=== PATIENT | female | born 1945 | race Caucasian/White ===

== ENCOUNTER → 2019-11-18 13:08 | Outpatient (CLI) | payer MEDICARE, SELFPAY ==
--- NOTE | ~2019-11-18 | MM_ITS ---
EXAMINATION: MM screening dawood BI w apurva HISTORY: Screening mammogram TECHNIQUE: Craniocaudal and mediolateral oblique 3-D tomosynthesis images were obtained and synthetic 2-D images were generated. CAD analysis was submitted and interpreted. COMPARISON: 08/16/2018 bilateral digital screening mammogram 07/09/2018 limited left breast ultrasound 12/05/2018 diagnostic left digital mammogram and limited left breast ultrasound 07/11/2017 and 08/29/2015 bilateral digital screening mammogram examinations BREAST PARENCHYMAL COMPOSITION: There are scattered areas of fibroglandular density. FINDINGS: Scattered bilateral benign breast calcifications. There is no evidence of suspicious mass, calcification, or architectural distortion to suggest malignancy in either breast. There has been no suspicious interval change. IMPRESSION: 1. No mammographic evidence of malignancy. 2. Recommend routine screening mammography in one year. BI-RADS Category 2: Benign finding(s). Reviewed, dictated and finalized at location A.
--- NOTE | ~2019-11-18 | DEXA_ITS ---
Bone Density Report Name: Benny Dominguez Age: 74 Sex: Female Ethnicity: White Date of : 1945 Indication: osteopenia; height loss; hysterectomy; postmenopausal Referring Provider: TAMIKO DALY Study: Bone densitometry was performed. Exam Date: November 18, 2019 Accession number: [id number] Bone Density: Region BMD T-score Z-score Classification AP Spine (L1-L4) 0.962 -0.8 1.5 Normal Femoral Neck (Left) 0.692 -1.4 0.6 Osteopenia Total Hip (Left) 0.758 -1.5 0.2 Osteopenia Femoral Neck (Right) 0.689 -1.4 0.5 Osteopenia Total Hip (Right) 0.758 -1.5 0.2 Osteopenia Total Hip Mean 0.758 -1.5 0.2 Osteopenia World Health Organization criteria for BMD impression classify patients as: Normal (T-score at or above -1.0), Osteopenia (T-score between -1.0 and -2.5), or Osteoporosis (T-score at or below -2.5). 10-year Fracture Risk(1): Major Osteoporotic Fracture 10% Hip Fracture 1.7% Reported Risk Factors: [place] (), Neck BMD=0.689, BMI=30.9 (1) FRAX(R) Version 3.08. Fracture probability calculated for an untreated patient. Fracture probability may be lower if the patient has received treatment. Previous Exams: Region Exam Age BMD T-score BMD Change BMD Change Date g/cm2 vs Baseline vs Previous AP Spine(L1-L4) 11/18/2019 74 0.962 -0.8 0.033* 0.000 08/29/2015 70 0.962 -0.8 0.033* -0.025* 08/09/2013 68 0.987 -0.5 0.058* -0.013 08/09/2011 66 1.000 -0.4 0.072* 0.070* 07/24/2009 64 0.930 -1.1 0.002 0.023 06/17/2008 63 0.908 -1.3 -0.021 -0.021 03/30/2007 61 0.929 -1.1 Total Hip(Left) 11/18/2019 74 0.758 -1.5 -0.019 -0.045* 08/29/2015 70 0.804 -1.1 0.026 0.006 08/09/2013 68 0.798 -1.2 0.020 -0.021 08/09/2011 66 0.819 -1.0 0.041* 0.017 07/24/2009 64 0.801 -1.2 0.023 0.037* 06/17/2008 63 0.765 -1.5 -0.013 -0.013 03/30/2007 61 0.778 -1.3 Total Hip(Right) 11/18/2019 74 0.758 -1.5 0.031* 0.002 08/29/2015 70 0.756 -1.5 0.029* -0.005 08/09/2013 68 0.761 -1.5 0.034* -0.005 08/09/2011 66 0.766 -1.4 0.039* 0.019 07/24/2009 64 0.747 -1.6 0.020 0.002 06/17/2008 63 0.744 -1.6 0.017 0.017 03/30/2007 61 0.727 -1.8 *Denotes significance
== END ==
PROVIDERS: Visit Provider Obstetrics & Gynecology
DX: Z12.31 Encounter for screening mammogram for malignant neoplasm of breast (principal); Z78.0 Asymptomatic menopausal state; M85.852 Other specified disorders of bone density and structure, left thigh; M85.851 Other specified disorders of bone density and structure, right thigh
CPT/HCPCS: 77063; 77067; 77080

== ENCOUNTER 2020-06-19 12:27 | Emergency (ER) | payer MEDICARE, SELFPAY ==
[2020-06-19] VITALS (25 sets, daily range): BP systolic 115–148; BP diastolic 75–87; PULSE 81–103; RESP 9–24; TEMP 36.4; O2SAT 98–99
--- NOTE | ~2020-06-19 | XR_ITS ---
EXAMINATION: XR chest 2V DATE: 06/19/2020 13:59 INDICATION: Thrombocytopenia. Weakness. Sore throat. TECHNIQUE: frontal and lateral views of the chest were obtained. COMPARISON: Chest radiograph dated 01/08/2019 FINDINGS: There are multiple bilateral scattered small calcified nodules consistent with old granulomatous dise ase. Unchanged mild streaky lingular atelectasis/scarring along a small left paracardial fat pad. No pulmonary edema, pleural effusion or pneumothorax. The cardiomediastinal silhouette is normal. Modera te to severe thoracic spondylosis. Partially visualized anterior plate and screw fixation for lower c ervical anterior spinal fusion. IMPRESSION: 1. No acute cardiopulmonary disease. Reviewed, dictated and finalized at location A.
[2020-06-19 13:02] LABS: Eosinophils Percent Auto 1.2 % (0-4.4); Hematocrit 33.1 % (37.0-47.0); Hemoglobin 11.9 g/dL (12.0-15.0); Immature Granulocyte Absolute 0.01 K/mm3 (0.00-0.031); Immature Granulocyte Percent A 0.6 % (0-0.5); Immature Platelet Fraction Pct 6.1 % (0.9-11.2); Lymphocytes Absolute Auto 0.29 K/mm3 (0.9-3.2); Mean Corpuscular Hemoglobin 32.2 pg (26-34); Mean Corpuscular Volume 89.5 fl (80-100); Monocytes Percent Auto 2.5 % (2.6-8.5); Neutrophils Absolute Auto 1.3 K/mm3 (1.3-6.7); Neutrophils Percent Auto 77.7 % (45.5-73.1); Platelet Count Result 49 k/mm3 (150-375); Red Cell Distribution Width 12.5 % (11.5-14.5)
[2020-06-19 13:10] LABS: Alanine Aminotransferase 52 U/L (4-35); Albumin Level 4.2 g/dL (3.5-5.1); Alkaline Phosphatase 64 U/L (38-126); Anion Gap 6 mmol/L (8-16); Aspartate Amino Transferase 33 U/L (14-36); Bilirubin,Total 0.7 mg/dL (0.2-1.3); Blood Urea Nitrogen 21 mg/dL (7-17); Calcium 9.4 mg/dL (8.4-10.2); Carbon Dioxide 27 mmol/L (22-30); Chloride 97 mmol/L (98-107); Estimated CRCL calculation 34 ml/min; Estimated Glomerular Filt Rate 49; Glucose 100 mg/dL (65-105); Potassium 4.4 mmol/L (3.4-5.0); Sodium 130 mmol/L (137-145)
[2020-06-19 13:16] LABS: White Blood Count 1.6 K/mm3 (4.5-10.0)
[2020-06-19 13:17] LABS: Anisocytosis 1+ (NORMAL); Platelet Estimate Decreased (Adequate)
[2020-06-19 13:18] LABS: INR 0.9; Partial Thromboplastin Time 22.6 SECONDS (22.3-36.8); Prothrombin Time 12.7 Seconds (11.1-14.7)
--- NOTE | 2020-06-19 13:32 | ED.GENADULT ---
HPI - General Adult General Chief complaint: Recheck/Abnormal Lab/Rx <Jonna George MD - Last Filed: 06/20/20 21:37> Stated complaint: low platlet, sent by pcp <Jonna George MD - Last Filed: 06/20/20 21:37> Time Seen by Provider: 06/19/20 13:24 <Jonna George MD - Last Filed: 06/20/20 21:37> Source: patient <Jonna George MD - Last Filed: 06/20/20 21:37> Mode of arrival: ambulatory <Jonna George MD - Last Filed: 06/20/20 21:37> History of Present Illness HPI narrative: Patient is a 75 y/o female sent in by her PCP Dr. Ambriz for low platelet. She state that she had labs done 3 days ago last Friday. She was told that her platelet count was 72. She is not aware of anything making her count better of worse. She states that she had her second COVID vaccine on 06/06 and developed blisters in her mouth. She was treated with antivirals and steroids. It's uncertain whether low platelet count is related. She noticed some blood when she blows nose sometimes. She has no fever, chills, cough, chest pain or SOB. <Jonna George MD - Last Filed: 06/20/20 21:37> Related Data Home medications: Home Medications Medication Instructions Recorded Confirmed cyclosporine 0.05 % eye drops in a 1 drop EACH EYE Q12H 09/27/19 03/17/20 dropperette methotrexate sodium [Methotrexate 20 mg PO WEEKLY 06/19/20 (Anti-Rheumatic)] pitavastatin calcium [Livalo] 1 mg PO DAILY 06/19/20 prednisone See Rx Instructions .ROUTE .COMPLEX 06/20/20 <Jonna George MD - Last Filed: 06/20/20 21:37> Allergies/adverse reactions: Allergies Allergy/AdvReac Type Severity Reaction Status Date / Time hydroxychloroquine Allergy Mild Itching Verified 06/19/20 12:46 adhesive tape Allergy Unknown skin Verified 06/19/20 12:46 irritation atorvastatin Allergy Unknown Unknown Verified 06/19/20 12:46 ciprofloxacin Allergy Unknown Unknown Verified 06/19/20 12:46 codeine Allergy Unknown Unknown Verified 06/19/20 12:46 erythromycin base Allergy Unknown Unknown Verified 06/19/20 12:46 pregabalin Allergy Unknown Unknown Verified 06/19/20 12:46 sumatriptan Allergy Unknown Unknown Verified 06/19/20 12:46 <Jonna George MD - Last Filed: 06/20/20 21:37> Review of Systems Constitutional: Constitutional: Denies chills, Denies fever(s), Denies headache(s) and Denies weakness <Jonna George MD - Last Filed: 06/20/20 21:37> Eyes: Eyes: Denies blurry vision <Jonna George MD - Last Filed: 06/20/20 21:37> ENT: Denies headache(s), Reports epistaxis, Reports mouth lesions, Reports mouth pain and Denies neck pain <Jonna George MD - Last Filed: 06/20/20 21:37> Cardiovascular: Cardiovascular: Denies chest pain and Denies dyspnea <Jonna George MD - Last Filed: 06/20/20 21:37> Respiratory: Respiratory: Denies cough and Denies dyspnea <Jonna George MD - Last Filed: 06/20/20 21:37> Gastrointestinal: Gastrointestinal: Denies abdominal pain, Denies diarrhea, Denies nausea and Denies vomiting <Jonna George MD - Last Filed: 06/20/20 21:37> Genitourinary: Genitourinary: Denies hematuria and Denies dysuria <Jonna George MD - Last Filed: 06/20/20 21:37> Musculoskeletal: Musculoskeletal: Denies back pain and Denies neck pain <Jonna George MD - Last Filed: 06/20/20 21:37> Neurologic: Denies headache(s) and Denies weakness <Jonna George MD - Last Filed: 06/20/20 21:37> PMF Past Medical History Medical History: Medical History (Updated 06/21/20 @ 00:00 by Background Daemon) Allergic rhinitis Depression Fibromyalgia GERD (gastroesophageal reflux disease) History of vaginal delivery x 2 HLD (hyperlipidemia) Hypertension Normal colonoscopy Osteoporosis Renal insufficiency Rheumatoid arthritis <Jonna George MD - Last Filed: 06/20/20 21:37> Surgical History Surgical History: Surgical History History of bilateral tubal ligation Histo
[2020-06-19 14:44] LABS: Add Urine Microscopic? YES; Appearance Urine Clear (Clear); Bacteria Urine Trace /hpf; Bilirubin Urine Negative (Negative); Blood Urine Negative (Negative); Color Urine Yellow (Yellow); Glucose Urine UA Negative (Negative); Ketones Urine 2+ mg/dL (Negative); Leukocyte Esterase Ur Negative LEU/UL (Negative); Mucus Urine Moderate /lpf; Nitrate Urine Negative (Negative); Protein Urine 1+ mg/dL (Negative); Specific Grav Ur 1.023 (1.001-1.035); Squamous Epithelial Cell Urine Few /hpf (Few); Urobilinogen Urine Negative mg/dL (<2.0)
--- NOTE | 2020-06-19 18:20 | PC.NURSE ---
spoke with [facility] bed placement team. aware that pt has low wbc count and may need reverse isolation room. will contact us when bed received.
[2020-06-19] MEDS: MAGNES & ALUM HYD/SIMETH/DIPHENHYD/LIDOCAINE 119 ML MOUTHWASH BY MOUTH (20:10)
[2020-06-20] VITALS (57 sets, daily range): BP systolic 110–152; BP diastolic 69–98; PULSE 84–111; RESP 4–29; O2SAT 82–100
--- NOTE | 2020-06-20 02:35 | PC.NURSE ---
[facility] access line called for a current set of vitals. States will continue to work on bed placement for pt and will call back w/ bed number and phone to call report. Per Bill, Will probably not happen until day shift.
[2020-06-20] MEDS: MAGNES & ALUM HYD/SIMETH/DIPHENHYD/LIDOCAINE 119 ML MOUTHWASH BY MOUTH (11:03)
[2020-06-20] MEDS: predniSONE 20 MG TABLET 40 MG PO (11:06)
[2020-06-20] MEDS: PANTOPRAZOLE 40 MG TABLET PO (11:07)
[2020-06-20] MEDS: GABAPENTIN 300 MG CAPSULE 600 MG PO (11:08)
[2020-06-20] MEDS: buPROPion HCL 75 MG TABLET 150 MG PO (11:09)
[2020-06-20] MEDS: cycloSPORINE 0.4 ML OPHTH SOLUTION 1 DROP EACH EYE (11:10)
[2020-06-20] MEDS: SPIRONOLACTONE 50 MG TABLET 100 MG PO (11:11)
[2020-06-20] MEDS: traMADol HCL (*CRX) 50 MG TABLET PO (11:12)
[2020-06-20 17:29] LABS: Hematocrit 33.8 % (37.0-47.0); Immature Granulocyte Absolute 0.02 K/mm3 (0.00-0.031); Immature Granulocyte Percent A 1.2 % (0-0.5); Immature Platelet Fraction Pct 4.8 % (0.9-11.2); Lymphocytes Percent Auto 12.1 % (18.3-44.2); Mean Corpuscular HGB Conc 35.5 g/dl (32-36); Mean Corpuscular Hemoglobin 32.4 pg (26-34); Mean Corpuscular Volume 91.4 fl (80-100); Mean Platelet Volume 10.8 fl (7.4-10.4); Monocytes Percent Auto 2.4 % (2.6-8.5); Neutrophils Absolute Auto 1.4 K/mm3 (1.3-6.7); Neutrophils Percent Auto 84.3 % (45.5-73.1); Platelet Count Result 49 k/mm3 (150-375)
[2020-06-20 17:41] LABS: Alanine Aminotransferase 50 U/L (4-35); Alkaline Phosphatase 59 U/L (38-126); Anion Gap 7 mmol/L (8-16); Aspartate Amino Transferase 32 U/L (14-36); Bilirubin,Total 0.4 mg/dL (0.2-1.3); Blood Urea Nitrogen 24 mg/dL (7-17); Calcium 9.2 mg/dL (8.4-10.2); Carbon Dioxide 27 mmol/L (22-30); Chloride 96 mmol/L (98-107); Estimated CRCL calculation 37 ml/min; Estimated Glomerular Filt Rate 54; Glucose 168 mg/dL (65-105); Potassium 3.9 mmol/L (3.4-5.0); Sodium 130 mmol/L (137-145)
[2020-06-20 17:44] LABS: White Blood Count 1.7 K/mm3 (4.5-10.0)
--- NOTE | 2020-06-20 20:51 | PC.NURSE ---
report to dany cardenas @ [facility]
--- NOTE | 2020-06-20 21:24 | PC.NURSE ---
made contact with [facility] and [employer]. all companies explained it would be numerous hours before any truck could transfer. [facility] accepted and rig is in the parking lot now.
--- NOTE | 2020-06-20 21:30 | PC.NURSE ---
[facility] is here
== END 2020-06-20 21:46 | disposition short-term general hospital (02) ==
PROVIDERS: Emergency Medicine; Emergency Provider Emergency Medicine; PCP Family Medicine
DX: D69.6 Thrombocytopenia, unspecified (principal); D72.818 Other decreased white blood cell count; M79.7 Fibromyalgia; I10 Essential (primary) hypertension; E78.5 Hyperlipidemia, unspecified; M81.0 Age-related osteoporosis without current pathological fracture; N28.9 Disorder of kidney and ureter, unspecified; K21.9 Gastro-esophageal reflux disease without esophagitis; M06.9 Rheumatoid arthritis, unspecified; Z96.659 Presence of unspecified artificial knee joint
CPT/HCPCS: 36415; 71046; 80053; 81001; 85025; 85055; 85610; 85730; 99285; A9270; J7512

== ENCOUNTER 2020-12-06 14:27 | Outpatient (CLI) | payer MEDICARE, SELFPAY ==
--- NOTE | ~2020-12-06 | MR_ITS ---
EXAMINATION: MR cervical spine wo con EXAM DATE: 12/06/2020 15:38 INDICATION: M47.22 - Other spondylosis with radiculopathy, TECHNIQUE: Multi-sequential, multiplanar MR images of the cervical spine were obtained without contra st. Axial T2, axial T2 MERGE sequence. Sagittal T1, T2, T2 fat saturation images also obtained. Com parison is made to prior examination from 07/24/2015. FINDINGS: There is C5-6 fusion, anterior plate. Moderate disc disease at C3-4 and 4-5. There is 2 mm retrolisthesis C3 on C4, 3 mm retrolisthesis C4 on C5, 2 mm retrolisthesis C6 on C7, 2 mm anterolist hesis C7 on T1. The spinal cord signal intensity and intrinsic morphology is normal. Cervicomedullary junction is normal in appearance. There are no suspicious marrow signal abnormalities. Paraspinal so ft tissue is unremarkable. Level by level evaluation: C2-C3: Disc does not extend beyond the endplate margin. Uncovertebral joint arthropathy: None. Facet joint arthropathy: Mild bilateral. Neural foraminal stenosis: No stenosis. Central canal stenosis: No stenosis. C3-C4: There is a mild diffuse disc bulge. Uncovertebral joint arthropathy: Moderate left, mild right. Facet joint arthropathy: Mild to moderate left, mild right. Neural foraminal stenosis: Moderate left, mild right. Central canal stenosis: Mild. C4-C5: There is a mild diffuse disc bulge. Uncovertebral joint arthropathy: Moderate bilateral. Facet joint arthropathy: Moderate bilateral. Neural foraminal stenosis: Moderate to severe bilateral. Central canal stenosis: Mild. C5-C6: This level is fused. Uncovertebral joint arthropathy: Fused. Facet joint arthropathy: Mild. Neural foraminal stenosis: No stenosis. Central canal stenosis: No stenosis. C6-C7: There is a mild diffuse disc bulge. Uncovertebral joint arthropathy: Moderate right, mild to moderate left. Facet joint arthropathy: Moderate left, mild to moderate right. Neural foraminal stenosis: Moderate to severe right, mild to moderate left. Central canal stenosis: Mild. C7-T1: Disc does not extend beyond the endplate margin. Uncovertebral joint arthropathy: Mild to moderate bilateral. Facet joint arthropathy: Moderate to severe left, mild to moderate right. Neural foraminal stenosis: Mild left. Central canal stenosis: No stenosis. Interval progression in mid cervical spondylosis compared to 2016. IMPRESSION: 1. Significant mid cervical neural foraminal stenosis as detailed above. 2. Fusion C5-6. Reviewed, dictated and finalized at location A.
== END 2020-12-06 14:28 | disposition home or self-care (01) ==
PROVIDERS: PCP Family Medicine; Visit Provider Family Medicine
DX: M48.02 Spinal stenosis, cervical region (principal); M47.22 Other spondylosis with radiculopathy, cervical region; Z98.1 Arthrodesis status
CPT/HCPCS: 72141

== ENCOUNTER → 2020-12-11 13:21 | Outpatient (CLI) | payer MEDICARE, SELFPAY ==
--- NOTE | ~2020-12-11 | MM_ITS ---
EXAMINATION: MM screening [facility] BI w apurva HISTORY: Screening TECHNIQUE: Craniocaudal and mediolateral oblique 3-D tomosynthesis images were obtained and synthetic 2-D images were generated. CAD analysis was submitted and interpreted. COMPARISON: Comparison to multiple prior studies sequentially, with oldest reviewed study dated 08/28. BREAST PARENCHYMAL COMPOSITION: There are scattered areas of fibroglandular density. FINDINGS: The right breast is stable without evidence for malignancy. There is a developing asymmetry adjacent to the nipple on the left cc view anteriorly. IMPRESSION: 1. Developing left breast asymmetry. 2. Additional mammographic views and possible breast ultrasound are recommended. BI-RADS Category 0: Incomplete: Needs additional imaging evaluation. Reviewed, dictated and finalized at location A. IMPRESSION: 1. Developing left breast asymmetry. 2. Additional mammographic views and possible breast ultrasound are recommended . BI-RADS Category 0: Incomplete: Needs additional imaging evaluation.
== END ==
PROVIDERS: PCP Family Medicine; Visit Provider Obstetrics & Gynecology
DX: Z12.31 Encounter for screening mammogram for malignant neoplasm of breast (principal); N64.89 Other specified disorders of breast
CPT/HCPCS: 77063; 77067

== ENCOUNTER → 2020-12-22 08:58 | Outpatient (CLI) | payer MEDICARE, SELFPAY ==
--- NOTE | ~2020-12-22 | MMUS_ITS ---
EXAMINATION: MM diagnostic dawood LT w apurva, US breast LT limited HISTORY: Developing left breast asymmetry reported in subareolar area TECHNIQUE: Additional 3-D tomosynthesis images of left breast were performed and synthetic 2-D images were generated. CAD analysis was submitted and interpreted. High resolution subareolar left breast u ltrasound was performed. COMPARISON: 12/11/2020, 11/18/2019, 08/06/2018 bilateral digital screening mammogram examinations 07/09/2018 limited left breast ultrasound 12/05/2017 diagnostic left mammogram and limited left breast ultrasound FINDINGS: MAMMOGRAPHIC FINDINGS: There is mild asymmetric increased density in the left subareolar area. ULTRASOUND: There is an irregular up to 4.1 x 7.4 mm hypoechoic lesion with internal vascularity in the left suba reolar area. Ultrasound-guided biopsy is recommended. IMPRESSION: 1. Irregular 4.1 x 7.4 mm hypoechoic lesion with internal vascularity in left subareolar area 2. Ultrasound-guided biopsy is recommended BI-RADS category 4, suspicious findings. Dr. Torres telephoned the report and ultrasound guided biopsy recommendation on 12/22/[address] Zimmer's Hose Suspender Cutter Earlene. Reviewed, dictated and finalized at location A. IMPRESSION: 1. Irregular 4.1 x 7.4 mm hypoechoic lesion with internal vascularity in left s ubareolar area 2. Ultrasound-guided biopsy is recommended BI-RADS category 4, suspicious findings. Dr. Torres telephoned the report and ultrasound guided biopsy recommendation on at [address] Zimmer's Hose Suspender Cutter Earlene.
== END ==
PROVIDERS: PCP Family Medicine; Visit Provider Obstetrics & Gynecology
DX: R92.8 Other abnormal and inconclusive findings on diagnostic imaging of breast (principal)
CPT/HCPCS: 76642; 77061; 77065; G0279

== ENCOUNTER 2021-01-17 13:02 | Outpatient (CLI) | payer MEDICARE, SELFPAY ==
--- NOTE | ~2021-01-17 | XR_ITS ---
XR shoulder LT min 2V 01/17/2021 13:39 Indication: Left shoulder pain Procedure: 5 views left shoulder Comparison: 11/28/2007 Findings: Mild glenohumeral joint osteoarthritis. There are calcified granulomas in the left lung. No acute fracture or traumatic malalignment. Acromioclavicular joint intact. Impression: 1: Mild glenohumeral joint osteoarthritis. Reviewed, dictated and finalized at location B. Impression: 1: Mild glenohumeral joint osteoarthritis.
== END 2021-01-17 13:03 | disposition home or self-care (01) ==
LOC: ANHIMG 13:04
PROVIDERS: PCP Family Medicine; Visit Provider Family Medicine
DX: M19.012 Primary osteoarthritis, left shoulder (principal)
CPT/HCPCS: 73030

== ENCOUNTER → 2021-05-07 11:25 | Outpatient (CLI) | payer MEDICARE, SELFPAY ==
--- NOTE | ~2021-05-07 | XR_ITS ---
EXAMINATION: XR forearm LT 2V, XR hand LT min 3V DATE: 05/07/2021 11:47 INDICATION: Unspecified injury at the left hand, wrist and fingers. TECHNIQUE: 1. AP an lateral views of the left forearm were obtained. 2. Dorsal palmar, oblique and lateral views of the left hand were obtained. COMPARISON: Left wrist radiographs dated 05/07/2021 FINDINGS: Nondisplaced fracture at the distal left radius with mild dorsal impaction resulting in 12 degrees do rsal tilt of the distal articular surface. No definitive intra-articular extension appreciated. No ot her fractures identified. 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 Additional osteoarthritis, moderate at the distal radioulnar joint and mild at the triscaphe, fir st carpometacarpal and multiple metacarpophalangeal and interphalangeal joints. Left elbow joint spac e is normal with no joint effusion. There are some soft tissues welling along the dorsal aspect of th e wrist and forearm. IMPRESSION: 1. Dorsally impacted fracture at the distal left radius. 2. 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 3. Additional polyarticular osteoarthritis, moderate at the distal radioulnar joint and mild at multi ple joints at the left hand. Reviewed, dictated and finalized at location A. OW GLASS CUTTER OFF IMPRESSION: 1. Dorsally impacted fracture at the distal left radius. 2. 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 3. Additional polyarticular osteoarthritis, moderate at the distal radioulnar j oint and mild at multiple joints at the left hand.
--- NOTE | ~2021-05-07 | XR_ITS ---
XR wrist LT w scaphoid DATE: 05/07/2021 11:47 INDICATION: Left wrist injury, pain TECHNIQUE: 5 views COMPARISON: None FINDINGS: Osteopenia. There is a recent nondisplaced transverse distal radial fracture. There is mild dorsal inclination of the distal radial articular surface. There is spurring at the radial ulnar joint. There is narrowing at the radial lunate joint space. There is scapholunate dissociation. There is osteoarthritic change at the first carpometacarpal joint. IMPRESSION: Nondisplaced transverse distal radial fracture with mild dorsal inclination of distal rad ial and date of service Scapholunate dissociation Osteoarthritic change at the radial lunate and first carpometacarpal joints Osteopenia Reviewed, dictated and finalized at location A. RIFUGAL CASTING MACHINE OPERATOR IMPRESSION: Nondisplaced transverse distal radial fracture with mild dorsal inc lination of distal radial and date of service Scapholunate dissociation Osteoarthritic change at the radial lunate and first carpometacarpal joints Osteopenia
== END ==
PROVIDERS: PCP Family Medicine; Visit Provider Family Medicine
DX: S52.592A Other fractures of lower end of left radius, initial encounter for closed fracture (principal); X58.XXXA Exposure to other specified factors, initial encounter; M19.042 Primary osteoarthritis, left hand; M85.832 Other specified disorders of bone density and structure, left forearm; M19.032 Primary osteoarthritis, left wrist
CPT/HCPCS: 73090; 73110; 73130

== ENCOUNTER 2023-08-07 11:45 | Outpatient (CLI) | payer MEDICARE, SELFPAY ==
--- NOTE | ~2023-08-07 | DEXA_ITS ---
Bone Density Report Name: GEOVANNA HANCOCK Age: 78 Sex: Female Ethnicity: White Date of : 1945 Indication: osteopenia; height loss; prior fracture; hysterectomy; Referring Provider: ROSALIND FLEMING Study: Bone densitometry was performed. Exam Date: August 07, 2023 Accession number: [id number] Bone Density: Region BMD T-score Z-score Classification AP Spine (L1-L4) 0.987 -0.5 2.0 Normal Femoral Neck (Left) 0.664 -1.7 0.5 Osteopenia Total Hip (Left) 0.777 -1.4 0.5 Osteopenia Femoral Neck (Right) 0.663 -1.7 0.5 Osteopenia Total Hip (Right) 0.766 -1.4 0.5 Osteopenia Total Hip Mean 0.772 -1.4 0.5 Osteopenia World Health Organization criteria for BMD impression classify patients as: Normal (T-score at or above -1.0), Osteopenia (T-score between -1.0 and -2.5), or Osteoporosis (T-score at or below -2.5). 10-year Fracture Risk(1): Major Osteoporotic Fracture 18% Hip Fracture 3.8% Reported Risk Factors: [place] (), Neck BMD=0.663, BMI=31.0, previous fracture (1) FRAX(R) Version 3.08. Fracture probability calculated for an untreated patient. Fracture probability may be lower if the patient has received treatment. Previous Exams: Region Exam Age BMD T-score BMD Change BMD Change Date g/cm2 vs Baseline vs Previous AP Spine(L1-L4) 08/07/2023 78 0.987 -0.5 0.058* 0.025* 11/18/2019 74 0.962 -0.8 0.033* 0.000 08/29/2015 70 0.962 -0.8 0.033* -0.025* 08/09/2013 68 0.987 -0.5 0.058* -0.013 08/09/2011 66 1.000 -0.4 0.072* 0.070* 07/24/2009 64 0.930 -1.1 0.002 0.023 06/17/2008 63 0.908 -1.3 -0.021 -0.021 03/30/2007 61 0.929 -1.1 Total Hip(Left) 08/07/2023 78 0.777 -1.4 -0.001 0.018 11/18/2019 74 0.758 -1.5 -0.019 -0.045* 08/29/2015 70 0.804 -1.1 0.026 0.006 08/09/2013 68 0.798 -1.2 0.020 -0.021 08/09/2011 66 0.819 -1.0 0.041* 0.017 07/24/2009 64 0.801 -1.2 0.023 0.037* 06/17/2008 63 0.765 -1.5 -0.013 -0.013 03/30/2007 61 0.778 -1.3 Total Hip(Right) 08/07/2023 78 0.766 -1.4 0.039* 0.008 11/18/2019 74 0.758 -1.5 0.031* 0.002 08/29/2015 70 0.756 -1.5 0.029* -0.005 08/09/2013 68 0.761 -1.5 0.034* -0.005 08/09/2011 66 0.766 -1.4 0.039* 0.019 07/24/2009 64 0.747 -1.6 0.020 0.002 06/17/2008 63 0.744 -1.6 0.017 0.017 03/30/2007 61
--- NOTE | ~2023-08-07 | MM_ITS ---
EXAMINATION: MM screening [facility] BI w apurva HISTORY: Screening mammogram TECHNIQUE: Craniocaudal and mediolateral oblique 3-D tomosynthesis images were obtained and synthetic 2-D images were generated. CAD analysis was submitted and interpreted. COMPARISON: 12/22 as well as 1121 diagnostic left mammogram and Limited left breast ultrasound examina tion 12/11/2020, 2019 and lateral screening mammogram examinations BREAST PARENCHYMAL COMPOSITION: There are scattered areas of fibroglandular density. FINDINGS: There is a biopsy marker in each breast. History of bilateral benign breast biopsies. Scatt ered bilateral benign calcifications. Scattered bilateral small circumscribed low density opacities. There is no evidence of suspicious mass, calcification, or architectural distortion to suggest malign dick in either breast. There has been no suspicious interval change. IMPRESSION: 1. Benign findings. No mammographic evidence of malignancy. 2. Recommend routine screening mammography in one year. BI-RADS Category 2: Benign finding(s). Reviewed, dictated and finalized at location B.
== END 2023-08-07 11:46 ==
PROVIDERS: PCP Family Medicine; Visit Provider Family Medicine
DX: Z12.31 Encounter for screening mammogram for malignant neoplasm of breast (principal); Z78.0 Asymptomatic menopausal state; M85.852 Other specified disorders of bone density and structure, left thigh; M85.851 Other specified disorders of bone density and structure, right thigh
CPT/HCPCS: 77063; 77067; 77080

== ENCOUNTER 2024-01-29 01:41 | Day surgery (SDC) | payer MEDICARE, SELFPAY ==
[2024-01-15 13:56] VITALS: BMI 29.2
[2024-01-29 08:14] VITALS: BP 134/61; PULSE 71; RESP 18; TEMP 36.9; O2SAT 98
[2024-01-29] MEDS: LACTATED RINGERS 1,000 ML 150 ML IV CONT (08:35)
--- NOTE | 2024-01-29 09:04 | P.HP_ITS ---
H&P: HPI History of Present Illness Date/Time: 01/29/24 09:04 Chief Complaint: heartburn Narrative: this patient has been suffering from reflux for many years. She was recently switched from Nexium to Dexilant, and feels much better. She denies dysphagia, weight loss, nausea, vomiting and is here for EGD, to rule out esophagitis, Aleman's or hiatal hernia. [facility] Past Medical History Medical History (Updated 01/08/24 @ 14:03 by JEROMY Rodriguez) Allergic rhinitis Cervical radiculopathy due to degenerative joint disease of spine Chronic cough Depression Drug reaction Fibromyalgia GERD (gastroesophageal reflux disease) History of vaginal delivery x 2 HLD (hyperlipidemia) Hypertension Left radial fracture Left wrist injury Leukopenia Normal colonoscopy Osteoporosis Renal insufficiency Rheumatoid arthritis Scapholunate dissociation of left wrist Thrombocytopenia Surgical History Surgical History H/O neck surgery History of bilateral tubal ligation History of cataract surgery History of hysterectomy History of knee replacement, total Family History Family History Mother Cerebrovascular accident, Onset Age: 85 Family history of dementia Father Family history of lung cancer, Onset Age: 56 Grandparent Diabetes mellitus Other Depression Family history of coronary artery disease Family history of malignant neoplasm of breast Family history of malignant neoplasm of male breast Family history of malignant neoplasm of ovary Family history of thyroid disease Hypertension Social History Social History Smoking status: Never smoker Second hand tobacco smoke exposure: No Alcohol intake: never Substance use: never Substance use type: does not use Lack of Transportation: No Lack of Food: Never True Current Housing: I Have Housing Concerned About Future Housing: No Difficulty Paying Gas/Electric Bills: No Difficulty Paying for Meds: No Currently Unemployed: No Difficulty w/ Childcare or Family Care: No Living arrangements: with family Gender identity (if verbalized by the patient): Female Spiritual care concerns: No Agree to blood products: Yes Meds Home Medications and Allergies Home Medications Medication Instructions Recorded Confirmed Type cyclosporine 0.05 % eye drops in a 1 drop ophthalmic (eye) Q12H 09/27/19 01/29/24 History dropperette (Restasis) vitamin E 268 mg (400 unit) capsule 400 unit PO DAILY 11/27/20 01/29/24 History ergocalciferol (vitamin D2) 1,250 1,250 mcg PO MONTHLY #6 caps 02/27/23 01/29/24 Rx mcg (50,000 unit) capsule (Vitamin D2) ezetimibe 10 mg tablet 10 mg PO DAILY #90 tabs 05/18/23 01/29/24 Rx bupropion HCl 150 mg 24 hr tablet, 150 mg PO QAM #90 tabs 07/21/23 01/29/24 Rx extended release gabapentin 300 mg capsule 900 mg PO BID #540 caps 08/06/23 01/29/24 Rx spironolactone 100 mg tablet 100 mg PO BID #180 tabs 09/30/23 01/29/24 Rx tramadol 50 mg tablet 50 mg PO Q6H PRN pain #90 tabs 12/17/23 01/29/24 Rx dexlansoprazole 60 mg 60 mg PO DAILY 1 month #30 caps 01/08/24 01/29/24 Rx capsule,biphase delayed release (Dexilant) famotidine 20 mg tablet (Pepcid) 20 mg PO DAILY PRN Heartburn 01/15/24 01/29/24 History lactobacillus combination no.8 3 1 cell PO DAILY 01/15/24 01/29/24 History billion cell capsule montelukast 10 mg tablet 10 mg PO QHS PRN allergies 01/15/24 01/29/24 History nystatin 100,000 unit/gram topical 1 applic topical BID PRN Rash 01/15/24 01/29/24 History cream tizanidine 2 mg capsule See Rx Instructions .Route 01/15/24 01/29/24 History .COMPLEX PRN muscle spasms trazodone 50 mg tablet 50 mg .Route QHS 01/15/24 01/29/24 History Allergies Allergy/AdvReac Type Severity Reaction Status Date / Time hydroxychloroquine Allergy Mild Itching Verified 01/29/24 08:13 adhesive tape Allergy Unknown skin Verified 01/29/24 08:13 irritation atorvastatin Allergy Unknown Unknown Verified 01/29/24 08:13 ciprofloxacin Allergy Unknown Unknown Verified 01/29/24 08:13 codeine Allergy Unknown Unknown Verified 01/29/24 08:13 erythromycin base Allergy Unknown Unknown Verified 01/29/24 08:13 pregabalin Allergy Unknown Unknown Verified 01/29/24 08:13 sumatriptan Allergy Unknown Unknown Verified 01/29/24 08:13 methotrexate AdvReac Severe blistering Verified 01/29/24 08:13 rash, mouth blisters Vital Signs Vital Signs - 24 hr 01/29/24 08:14 Temperature 98.4 F Pulse Rate 71 Respiratory Rate 18 Blood Pressure 134/61 Pulse Oximetry 98 Oxygen Delivery Room Air Assessment and Plan Assessment and plan (1) GERD (gastroesophageal reflux disease): Code(s): K21.9 - Gastro-esophageal reflux disease without esophagitis Status: Acute Assessment and Plan: The patient is deemed a good candidate for the procedure. Consent signed. Will proceed.
--- NOTE | 2024-01-29 09:38 | P.PNAN_ITS ---
Anes - Initial Pre Proc Eval Procedure: Operation Date: 01/29/24 09:30 Proposed Procedures p Esophagogastroduodenoscopy - Madhav Rosas MD Date/Time: 01/29/24 09:38 Surgeon: Madhav Rosas MD Pre Op Diagnosis: GERD Patient Data Age: 78 Gender: F Height: 1.52 m Weight: 67.8 kg Last Vital Signs Temp 36.9 C 01/29/24 08:14 Pulse 71 01/29/24 08:14 Resp 18 01/29/24 08:14 BP 134/61 01/29/24 08:14 Pulse Ox 98 01/29/24 08:14 O2 Del Method Room Air 01/29/24 08:14 Allergies Allergy/AdvReac Type Severity Reaction Status Date / Time hydroxychloroquine Allergy Mild Itching Verified 01/29/24 08:13 adhesive tape Allergy Unknown skin Verified 01/29/24 08:13 irritation atorvastatin Allergy Unknown Unknown Verified 01/29/24 08:13 ciprofloxacin Allergy Unknown Unknown Verified 01/29/24 08:13 codeine Allergy Unknown Unknown Verified 01/29/24 08:13 erythromycin base Allergy Unknown Unknown Verified 01/29/24 08:13 pregabalin Allergy Unknown Unknown Verified 01/29/24 08:13 sumatriptan Allergy Unknown Unknown Verified 01/29/24 08:13 methotrexate AdvReac Severe blistering Verified 01/29/24 08:13 rash, mouth blisters Home Medications Medication Instructions Recorded Confirmed Type cyclosporine 0.05 % eye drops in a 1 drop ophthalmic (eye) Q12H 09/27/19 01/29/24 History dropperette (Restasis) vitamin E 268 mg (400 unit) capsule 400 unit PO DAILY 11/27/20 01/29/24 History ergocalciferol (vitamin D2) 1,250 1,250 mcg PO MONTHLY #6 caps 02/27/23 01/29/24 Rx mcg (50,000 unit) capsule (Vitamin D2) ezetimibe 10 mg tablet 10 mg PO DAILY #90 tabs 05/18/23 01/29/24 Rx bupropion HCl 150 mg 24 hr tablet, 150 mg PO QAM #90 tabs 07/21/23 01/29/24 Rx extended release gabapentin 300 mg capsule 900 mg PO BID #540 caps 08/06/23 01/29/24 Rx spironolactone 100 mg tablet 100 mg PO BID #180 tabs 09/30/23 01/29/24 Rx tramadol 50 mg tablet 50 mg PO Q6H PRN pain #90 tabs 12/17/23 01/29/24 Rx dexlansoprazole 60 mg 60 mg PO DAILY 1 month #30 caps 01/08/24 01/29/24 Rx capsule,biphase delayed release (Dexilant) famotidine 20 mg tablet (Pepcid) 20 mg PO DAILY PRN Heartburn 01/15/24 01/29/24 History lactobacillus combination no.8 3 1 cell PO DAILY 01/15/24 01/29/24 History billion cell capsule montelukast 10 mg tablet 10 mg PO QHS PRN allergies 01/15/24 01/29/24 History nystatin 100,000 unit/gram topical 1 applic topical BID PRN Rash 01/15/24 01/29/24 History cream tizanidine 2 mg capsule See Rx Instructions .Route 01/15/24 01/29/24 History .COMPLEX PRN muscle spasms trazodone 50 mg tablet 50 mg .Route QHS 01/15/24 01/29/24 History Patient hx anesthesia problems: none Family hx anesthesia problems: none Results Review: All pre-operative results and documents have been reviewed as part of the pre- operative evaluation. [facility] Past Medical History Medical History (Updated 01/08/24 @ 14:03 by Aysha Hdz APN-Ava) Allergic rhinitis Cervical radiculopathy due to degenerative joint disease of spine Chronic cough Depression Drug reaction Fibromyalgia GERD (gastroesophageal reflux disease) History of vaginal delivery x 2 HLD (hyperlipidemia) Hypertension Left radial fracture Left wrist injury Leukopenia Normal colonoscopy Osteoporosis Renal insufficiency Rheumatoid arthritis Scapholunate dissociation of left wrist Thrombocytopenia Surgical History Surgical History H/O neck surgery History of bilateral tubal ligation History of cataract surgery History of hysterectomy History of knee replacement, total Family History Family History Mother Cerebrovascular accident, Onset Age: 85 Family history of dementia Father Family history of lung cancer, Onset Age: 56 Grandparent Diabetes mellitus Other Depression Family history of coronary artery disease Family history of malignant neoplasm of breast Family history of malignant neoplasm of male breast Family history of malignant neoplasm of ovary Family history of thyroid disease Hypertension Social History Social History Smoking status: Never smoker Second hand tobacco smoke exposure: No Alcohol intake: never Substance use: never Substance use type: does not use Lack of Transportation: No Lack of Food: Never True Current Housing: I Have Housing Concerned About Future Housing: No Difficulty Paying Gas/Electric Bills: No Difficulty Paying for Meds: No Currently Unemployed: No Difficulty w/ Childcare or Family Care: No Living arrangements: with family Gender identity (if verbalized by the patient): Female Spiritual care concerns: No Agree to blood products: Yes Anes - Eval Final PreProcedure Day of Procedure 01/29/24 09:38 Patient weight: overweight Heart: regular rate and rhythm Lungs: clear to auscultation Airway: Mallampati scale class III Neurological: alert and oriented Last oral intake: >/= 8 hours ASA classification: III Emergent: no Anesthetic plan: proceed Anesthesia type and monitoring: general GIVS and standard monitoring Results Review: All pre-operative results and documents have been reviewed as part of the pre- operative evaluation. Informed Consent: The patient's anesthetic plan and its attendant risks and benefits were discu ssed with the patient/family/POA. Questions were solicited and answers provided to the satisfaction of the patient/family/POA.
[2024-01-29 09:58] VITALS: BP 96/50; PULSE 67; RESP 16; O2SAT 97
[2024-01-29 10:08] VITALS: BP 97/53; PULSE 69; RESP 20; O2SAT 98
[2024-01-29 10:18] VITALS: BP 102/60; PULSE 67; RESP 20; O2SAT 98
== END 2024-01-29 10:58 | disposition home or self-care (01) ==
PROVIDERS: PCP Family Medicine; Referring Provider Nurse Practitioner Family; Visit Provider Internal Medicine Gastroenterology
PROC: 0DJ08ZZ Inspection of Upper Intestinal Tract, Via Natural or Artificial Opening Endoscopic (ICD-10-PCS; CPT 43235; principal; 2024-01-29 09:30)
DX: K21.9 Gastro-esophageal reflux disease without esophagitis (principal); K29.50 Unspecified chronic gastritis without bleeding; K31.7 Polyp of stomach and duodenum; E78.5 Hyperlipidemia, unspecified; I10 Essential (primary) hypertension; F32.A Depression, unspecified; R05.3 Chronic cough; M81.0 Age-related osteoporosis without current pathological fracture; N28.9 Disorder of kidney and ureter, unspecified; D69.6 Thrombocytopenia, unspecified; M06.9 Rheumatoid arthritis, unspecified; Z79.891 Long term (current) use of opiate analgesic; Z98.890 Other specified postprocedural states; Z98.51 Tubal ligation status; Z98.1 Arthrodesis status; Z80.1 Family history of malignant neoplasm of trachea, bronchus and lung; Z80.3 Family history of malignant neoplasm of breast; Z80.41 Family history of malignant neoplasm of ovary; Z82.49 Family history of ischemic heart disease and other diseases of the circulatory system
CPT/HCPCS: 43239; 88305; J2003; J2704; J7120

== ENCOUNTER 2024-08-09 12:47 | Outpatient (CLI) | payer MEDICARE, SELFPAY ==
--- NOTE | ~2024-08-09 | MM_ITS ---
EXAMINATION: MM screening [facility] BI w [facility] HISTORY: Screening mammogram TECHNIQUE: Craniocaudal and mediolateral oblique 3-D tomosynthesis images were obtained and synthetic 2-D images were generated. CAD analysis was submitted and interpreted. COMPARISON: 08/07/2023, 12/22/2020 BREAST PARENCHYMAL COMPOSITION:Not Dense. There are scattered areas of fibroglandular density. FINDINGS: Stable small bilateral masses and benign calcifications. No suspicious mass, calcification, or architectural distortion are identified in either breast to suggest malignancy. There has been no suspicious interval change. IMPRESSION: No mammographic evidence of malignancy. Recommend routine screening mammography in one year. BI-RADS Category 2: Benign finding(s). Reviewed, dictated and finalized at location .
== END 2024-08-09 12:48 | disposition home or self-care (01) ==
LOC: MICIMG 12:49
PROVIDERS: PCP Family Medicine; Visit Provider Family Medicine
DX: Z12.31 Encounter for screening mammogram for malignant neoplasm of breast (principal)
CPT/HCPCS: 77063; 77067